=== PATIENT | female | born 1990 | race Caucasian/White ===

== ENCOUNTER → 2021-03-06 | Outpatient (CLI) | payer BC, OTHER | LOC: LAB 02:16 | DX: R05 Cough (principal); Z20.822 Contact with and (suspected) exposure to COVID-19 | CPT/HCPCS: 87081; 87880; U0002 ==

== ENCOUNTER 2021-06-19 17:54 | Emergency (ER) | payer OTHER ==
[~2021-06-19] VITALS: Ht 157.5 cm; Wt 69.9 kg
[2021-06-19 19:09] LABS: HEMOGLOBIN 13.1 gm/dl (12.3-15.3); RED BLOOD COUNT 4.54 M/UL (4.00-5.10); WHITE BLOOD COUNT 3.1 K/UL (4.5-11.0)
[2021-06-19 19:52] LABS: BUN/CREATININE RATIO 12 (0-10)
== END 2021-06-19 22:29 | disposition home or self-care (01) ==
LOC: ER1 17:54
PROVIDERS: Emergency Medicine
DX: Z23 Encounter for immunization (principal); U07.1 COVID-19; E87.6 Hypokalemia; R91.1 Solitary pulmonary nodule
CPT/HCPCS: 71045; 80053; 82550; 82553; 83874; 84484; 85025; 85379; 99284; M0243

== ENCOUNTER → 2021-11-03 | Outpatient (CLI) | payer OTHER | LOC: LAB 23:10 | DX: U07.1 COVID-19 (principal) | CPT/HCPCS: U0002 ==